=== PATIENT | female | born 1975 | race Caucasian/White ===

== ENCOUNTER 2020-10-18 10:56 | Emergency (ER) | payer OTHER ==
[2020-10-18 11:30] VITALS: BP 130/74; PULSE 77; TEMP 98; BMI 23.8
[2020-10-18 13:41] LABS: PH,URINE 6.5 (5.0-8.0); URINE APPEARANCE CLEAR; URINE BILIRUBIN NEGATIVE (NEGATIVE); URINE COLOR YELLOW; URINE GLUCOSE (UA) NEGATIVE (NEGATIVE); URINE KETONE NEGATIVE (NEGATIVE); URINE LEUK ESTERASE NEGATIVE (NEGATIVE); URINE NITRITE NEGATIVE (NEGATIVE); URINE PROTEIN NEGATIVE (NEGATIVE); URINE UROBILINOGEN 0.2 mg/dL (0.2-1.0)
[2020-10-18 13:43] LABS: HCG,QUALITATIVE URINE Negative
== END 2020-10-18 14:51 | disposition home or self-care (01) ==
LOC: JERFT 10:56 → JER 10:56 → JERFT 14:51
DX: R30.0 Dysuria (principal)
CPT/HCPCS: 81003; 84703; 87086; 87186; 99284-25

== ENCOUNTER 2024-08-13 10:21 | Emergency (ER) | payer OTHER ==
[2024-08-13 10:49] VITALS: BP 105/70; PULSE 68; RESP 16; TEMP 98.4; BMI 23.2
[2024-08-13] MEDS ORDERED: KETOROLAC TROMETHAMINE 30 MG/1 ML VIAL ONE (11:44)
[2024-08-13] MEDS: KETOROLAC TROMETHAMINE 30 MG/1 ML VIAL IM ONE (11:51)
== END 2024-08-13 12:05 | disposition home or self-care (01) ==
LOC: JERFT 10:21
PROC: 3E0133Z Introduction of Anti-inflammatory into Subcutaneous Tissue, Percutaneous Approach (ICD-10-PCS; principal; 2024-08-13)
DX: M62.830 Muscle spasm of back (principal); M54.50 Low back pain, unspecified; X50.0XXA Overexertion from strenuous movement or load, initial encounter
CPT/HCPCS: 99284-25

== ENCOUNTER 2025-06-02 17:54 | Emergency (ER) | payer OTHER ==
[2025-06-02 18:05] VITALS: BP 117/84; PULSE 72; RESP 18; TEMP 98.4; BMI 22.3
[2025-06-02 18:44] LABS: HCG,QUALITATIVE URINE Negative
[2025-06-02 18:52] LABS: URINE APPEARANCE CLEAR; URINE BILIRUBIN NEGATIVE (NEGATIVE); URINE COLOR YELLOW; URINE GLUCOSE (UA) NEGATIVE (NEGATIVE); URINE KETONE NEGATIVE (NEGATIVE); URINE LEUK ESTERASE NEGATIVE (NEGATIVE); URINE NITRITE NEGATIVE (NEGATIVE); URINE PROTEIN NEGATIVE (NEGATIVE); URINE UROBILINOGEN 0.2 mg/dL (0.2-1.0)
== END 2025-06-02 19:20 | disposition home or self-care (01) ==
LOC: JERFT 17:54
DX: R35.0 Frequency of micturition (principal); R10.30 Lower abdominal pain, unspecified
CPT/HCPCS: 81003; 84703; 87086; 99283-25